=== PATIENT | female | born 1990 | race African-American/Black ===

== ENCOUNTER 2022-11-22 11:34 | Emergency (ER) | payer OTHER ==
[2022-11-22 11:41] VITALS: BP 131/89; PULSE 101; RESP 19; TEMP 99.6; BMI 27.3
[2022-11-22] MEDS ORDERED: ACETAMINOPHEN 1000 MG/100 ML BAG IVPB ONE (12:38)
[2022-11-22] MEDS ORDERED: LACTATED RINGERS SOLUTION 1000 ML INFUS.BAG IV ONE (12:38)
[2022-11-22] MEDS ORDERED: MAG HYDROX/AL HYDROX/SIMETH 30 ML UNIT-DOSE CUP PO ONE (12:38)
[2022-11-22] MEDS ORDERED: FAMOTIDINE 20 MG/50 ML IVPB 20 MG/50 ML MG IVPB ONE ×2 (12:38→13:14)
[2022-11-22] MEDS ORDERED: ONDANSETRON 4 MG/2 ML VIAL IVPUSH ONE (12:44)
[2022-11-22] MEDS ORDERED: MAG HYDROX/AL HYDROX/SIMETH 30 ML UNIT-DOSE CUP ONE (13:14)
[2022-11-22] MEDS ORDERED: ONDANSETRON 4 MG/2 ML VIAL ONE (13:14)
[2022-11-22] MEDS ORDERED: ACETAMINOPHEN INJECTION 100 ML IVPB ONE (13:14)
[2022-11-22 13:40] LABS: URINE APPEARANCE CLEAR; URINE BILIRUBIN NEGATIVE (NEGATIVE); URINE COLOR DK YELLOW; URINE GLUCOSE (UA) NEGATIVE (NEGATIVE); URINE KETONE 3+ (NEGATIVE); URINE LEUK ESTERASE NEGATIVE (NEGATIVE); URINE NITRITE NEGATIVE (NEGATIVE); URINE PROTEIN TRACE (NEGATIVE)
[2022-11-22 13:49] LABS: BASO % 0.7 % (0-2.0); EOS % 0.4 % (0-4.5); HEMATOCRIT 42.3 % (32.4-45.2); HEMOGLOBIN 14.5 GM/dL (10.7-15.3); LYMPH % 20.4 % (8-40); MCHC 34.3 g/dl (32.0-36.0); MEAN CELL VOLUME 81.6 fl (80-96); MEAN PLT VOLUME 9.4 fl (7.5-11.1); MONO % 5.2 % (3.8-10.2); NEUT % 73.3 % (42.8-82.8); PLATELET COUNT 316 10^3/uL (134-434); RBC 5.19 M/mm3 (3.60-5.2); RDW 15.1 % (11.6-15.6)
[2022-11-22 14:07] LABS: ALBUMIN 4.4 g/dl (3.4-5.0); BLOOD UREA NITROGEN 8.4 mg/dL (7-18); CALCIUM 9.8 mg/dL (8.5-10.1)
[2022-11-22 14:10] LABS: CREATININE 0.9 mg/dL (0.55-1.3); MAGNESIUM 1.8 mg/dL (1.8-2.4)
[2022-11-22 14:11] LABS: BILIRUBIN,TOTAL 1.2 mg/dL (0.2-1); TOT PROT 7.8 g/dl (6.4-8.2)
== END 2022-11-22 15:44 | disposition home or self-care (01) ==
LOC: JER 11:34
PROC: 3E033GC Introduction of Other Therapeutic Substance into Peripheral Vein, Percutaneous Approach (ICD-10-PCS; principal; 2022-11-22)
PROC: 3E033NZ Introduction of Analgesics, Hypnotics, Sedatives into Peripheral Vein, Percutaneous Approach (ICD-10-PCS; 2022-11-22)
PROC: 3E033GC Introduction of Other Therapeutic Substance into Peripheral Vein, Percutaneous Approach (ICD-10-PCS; 2022-11-22)
DX: R10.13 Epigastric pain (principal); R11.2 Nausea with vomiting, unspecified; Z20.822 Contact with and (suspected) exposure to COVID-19
CPT/HCPCS: 0241U-QW; 36415; 74176-TC; 80053; 81003; 83690; 83735; 84703; 85025; 85651; 87086; 93005; 93010; 99285-25

== ENCOUNTER 2024-05-23 22:59 | Emergency (ER) | payer OTHER ==
[2024-05-23 23:05] VITALS: BP 132/80; PULSE 75; RESP 16; TEMP 98.4; BMI 34.4
[2024-05-24] MEDS ORDERED: ACETAMINOPHEN 325 MG TABLET (FP) ONE (00:30)
[2024-05-24] MEDS: ACETAMINOPHEN 500 MG TABLET (FP) PO ONE (00:32)
[2024-05-24] MEDS ORDERED: BACITRACIN ZINC 15 GM TUBE TOPICAL OINTMENT ONE (00:51)
[2024-05-24] MEDS ORDERED: DIPHTH,PERTUSS(ACELL),TET 0.5 ML DISP.SYRIN IM ONE (00:52)
[2024-05-24] MEDS: BACITRACIN ZINC 15 GM TUBE TOPICAL OINTMENT TP ONE (00:52)
[2024-05-24] MEDS: DIPHTH,PERTUSS(ACELL),TET 0.5 ML DISP.SYRIN IM ONE (01:00)
[2024-05-24] MEDS ORDERED: oxyCODONE HCL 5 MG TABLET ONE (01:11)
[2024-05-24] MEDS ORDERED: CEPHALEXIN MONOHYDRATE 500 MG CAPSULE (UD) ONE (01:12)
[2024-05-24] MEDS: oxyCODONE HCL 5 MG TABLET PO ONE (01:18)
[2024-05-24] MEDS: CEPHALEXIN MONOHYDRATE 500 MG CAPSULE (UD) PO ONE (01:19)
== END 2024-05-24 01:19 | disposition home or self-care (01) ==
LOC: JER 22:59
PROC: 3E0234Z Introduction of Serum, Toxoid and Vaccine into Muscle, Percutaneous Approach (ICD-10-PCS; principal; 2024-05-24)
DX: T23.231A Burn of second degree of multiple right fingers (nail), not including thumb, initial encounter (principal); T25.232A Burn of second degree of left toe(s) (nail), initial encounter; T24.132A Burn of first degree of left lower leg, initial encounter; X08.0 Exposure to bed fire; Z23 Encounter for immunization
CPT/HCPCS: 84703; 90471; 90715; 99284-25